=== PATIENT | female | born 1975 | race Caucasian/White ===

== ENCOUNTER → 2017-03-15 | Outpatient (CLI) | payer BC ==
--- NOTE | 2017-03-15 14:46 | PCVCIMAG ---
APPROVED REPORT Study performed: 03/15/2017 12:41:42 EXAM: Comprehensive 2D, Doppler, and color-flow Echocardiogram Patient Location: Echo lab Status: routine BSA: 2.11 HR: 52 bpmBP: 144/90 mmHg Rhythm: Bradycardia Other Information Study Quality: Adequate Risk Factors: Cardiac Risk Factors: HTN, Hyperlipidemia Indications Chest Pain 2D Dimensions LVEF(%): 46.99 (>50%) IVSd: 11.48 (7-11mm) LVDd: 44.45 mm PWd: 10.11 (7-11mm) LVDs: 34.06 (25-40mm) Left Atrium: 44.88 (27-40mm) Aortic Root: 31.24 mm LV Single Plane 4CH: 56.29 % LV Single Plane 2CH: 56.61 %Rider's LVEF: 56.45 % Biplane EF: 56.4 % Volumes Left Atrial Volume (Systole) Single Plane 4CH: 65.35 mLSingle Plane 2CH: 70.99 mL LA ESV Index: 33.00 mL/m2 Aortic Valve AoV Peak Kayden.: 1.47 m/s AO Peak Gr.: 8.63 mmHgLVOT Max P.22 mmHg LVOT Max V: 1.14 m/s Mitral Valve E/A Ratio: 2.0 MV Decel. Time: 314.87 ms MV E Max Kayden.: 0.88 m/s MV A Kayden.: 0.45 m/s IVRT: 76.12 ms Pulmonary Valve PV Peak Kayden.: 0.91 m/sPV Peak Gr.: 3.29 mmHg Pulmonary Vein P Vein S: 0.27 m/sP Vein A: 0.25 m/s P Vein D: 0.49 m/sP Vein A Dur.: 107.3 msec P Vein S/D Ratio: 0.55 Tricuspid Valve TR Peak Kayden.: 2.33 m/s TR Peak Gr.: 21.68 mmHg Left Ventricle The left ventricle is normal size. There is normal LV segmental wall motion. There is normal left ventricular wall thickness. Left ventricular systolic function is normal. The left ventricular ejection fraction is within the normal range. LVEF is 55-60%. The left ventricular diastolic function is normal. Right Ventricle The right ventricle is normal size. The right ventricular systolic function is normal. Atria Left atrium is mildly dilated. The right atrium size is normal. Aortic Valve The aortic valve is normal in structure. No aortic regurgitation is present. There is no aortic valvular stenosis. Mitral Valve The mitral valve is normal in structure. Mild mitral regurgitation. No evidence of mitral valve stenosis. Tricuspid Valve The tricuspid valve is normal in structure. Mild tricuspid regurgitation with PAP of 29 mmHg. Pulmonic Valve The pulmonary valve is normal in structure. There is no pulmonic valvular regurgitation. Great Vessels The aortic root is normal in size. IVC is normal in size and collapses with >50% inspiration Pericardium There is no pericardial effusion. <Conclusion> The left ventricle is normal size. LVEF is 55-60%. Left atrium is mildly dilated. The aortic valve is normal in structure. The mitral valve is normal in structure. Mild mitral regurgitation. The tricuspid valve is normal in structure. Mild tricuspid regurgitation with PAP of 29 mmHg. The pulmonary valve is normal in structure. There is no pulmonic valvular regurgitation.
== END | disposition home or self-care (01) ==
LOC: PCVCIMAG 12:39
PROVIDERS: ATTEND Internal Medicine
DX: I08.1 Rheumatic disorders of both mitral and tricuspid valves (principal); I10 Essential (primary) hypertension; E78.5 Hyperlipidemia, unspecified; E03.8 Other specified hypothyroidism; Z79.82 Long term (current) use of aspirin; Z90.710 Acquired absence of both cervix and uterus; Z87.891 Personal history of nicotine dependence
CPT/HCPCS: 93306